=== PATIENT | male | born 1980 | race Caucasian/White ===

== ENCOUNTER 2022-04-25 09:00 | Emergency (ER) | payer OTHER ==
--- NOTE | 2022-04-25 09:30 | NUR ---
Called pt x 1, no answer
--- NOTE | 2022-04-25 10:00 | NUR ---
Called pt x 2 no answer
--- NOTE | 2022-04-25 10:46 | NUR ---
Called pt x 3, no answer
== END 2022-04-25 17:35 | disposition left against medical advice (07) ==
LOC: SED 09:00
DX: R10.9 Unspecified abdominal pain (principal); Z53.21 Procedure and treatment not carried out due to patient leaving prior to being seen by health care provider